=== PATIENT | male | born 1955 | race Caucasian/White ===

== ENCOUNTER 2021-03-30 09:48 | Emergency (ER) | payer BC, SELFPAY ==
[2021-03-30 09:49] VITALS: BP 141/92; PULSE 100; RESP 16; TEMP 36.6; O2SAT 95; BMI 29.8
[2021-03-30 10:10] LABS: Mucous, Urine 0 SEEN /hpf (<or=2+)
[2021-03-30 10:17] LABS: Color, Urine Yellow (Yellow); Glucose, Dipstick Normal (Normal); Ketone-Dipstick Negative (Negative); Leukocyte Esterase-Dipstick 25 /ul (Negative); Nitrite-Dipstick Negative (Negative); Occult Blood-Urine 250 /ul (Negative); Protein-Dipstick 30 mg/dl (Negative); Urine Bilirubin Dipstick Negative (Negative); Urine Clarity Clear (Clear); Urine Urobilinogen Normal (Normal)
[2021-03-30 10:27] LABS: Bacteria 1+ /hpf (None Seen); Red Blood Cells-Urine 25-50 SEEN /hpf (0-5); Squamous Epithelial Cells - UA 0-5 SEEN /hpf (0-5); White Blood Cells 0-5 SEEN /hpf (0-5)
--- NOTE | 2021-03-30 10:32 | EX.ED.DYSGE1 ---
HPI History of Present Illness Chief Complaint: Flank Pain Informant: patient Narrative Narrative: Patient complains of nausea and vomiting with a kidney stone. He has had kidney stones many times. He is always been able to pass them. He started with kidney stone symptoms just about 24 hours ago. He saw urologist, Dr. Godoy down in [place]. They were able to get a CAT scan yesterday that showed 2 stones on the right. The expectation was that they would pass. I do not know the exact size though. He was placed on Flomax, Phenergan, hydrocodone. He states he has been having problems with nausea vomiting. He thinks the pain meds are causing his vomiting. He is taking the Phenergan also. While he was here, he just passed a small stone. He was having trouble urinating but it now seems better. The pain used to be in his right flank. Is now moved down to his right lower quadrant. However, the pain is starting to come back and the nausea is coming back slightly after passing the stone here. [facility] Medical History Hyperlipidemia Home Medications ketorolac 10 mg PO TID 5 Days #15 tab 03/30/21 [Rx Last Taken Unknown] Allergy/AdvReac Type Severity Reaction Status Date / Time No Known Allergies Allergy Verified 03/30/21 09:52 Surgical History no surgical history Social History Smoking Status: Never smoker ROS ROS ED Constitutional Constitutional ED: Denies chills or fever(s) ENT ENT ED: Denies sore throat Cardiovascular Cardiovascular: Denies chest pain Respiratory/Chest Respiratory/Chest: Denies cough or dyspnea Gastrointestinal Gastrointestinal: Reports abdominal pain, nausea and vomiting; Denies constipation, diarrhea or melena Genitourinary Genitourinary ED: Reports hematuria Musculoskeletal Musculoskeletal: Reports back pain and other Details: Right flank pain. Now better. ; Denies myalgias Integumentary Denies rash Neurologic Neurologic: Denies headache(s) Allergic/Immunologic Allergic/Immunologic ED: Denies urticaria EXAM Physical Exam Const Vital Signs: 03/30/21 09:49 03/30/21 11:50 Temperature 97.9 F Temperature Source Temporal Pulse Rate 100 72 Respiratory Rate 16 15 Blood Pressure 141/92 H 134/63 H Blood Pressure Mean 108 86 Pulse Ox 95 96 Oxygen Delivery Method Room Air Room Air Positive well nourished and well developed General Appearance ED: well developed; Negative for cyanotic or diaphoretic HEENT Negative for trauma Chest Wall inspection of chest normal Resp normal respiratory effort and clear to auscultation bilaterally Cardio regular rate and regular rhythm GI normal to inspection, nondistended, normoactive bowel sounds and non-tender GI Narrative: Patient has pain in the right lower quadrant but he has no tenderness. No hernias felt. Palpation: soft Back/Spine Back/Spine Narrative: Very mild right CVA tenderness with deeper percussion only. No rashes. Extremity normal to inspection Neuro Sensorium / Orientation: alert Skin no rashes or lesions noted MDM MDM MDM Narrative Medical decision making narrative: Patient feels better after treatment. His pain is well controlled. He has no nausea. Urine does show red cells. No sign of infection. I will get him home with Toradol prescription. We will also write for some Zofran to give him options of nausea. He will follow up with his urologist. Return with worsening pain, nausea vomiting, fevers or other concerns. Lab Data Attestation: I reviewed the patient's lab results. Labs: Laboratory Results - last 24 hr 03/30/21 10:02 Urine Color Yellow Urine Clarity Clear Urine pH 5.0 Ur Specific [place] 1.020 Urine Protein 30 H Urine Glucose (UA) Normal Urine Ketones Negative Urine Occult Blood 250 H Urine Nitrite Negative Urine Bilirubin Negative Urine Urobilinogen Normal Ur Leukocyte Esterase 25 H Urine RBC 25-50 SEEN Urine WBC 0-5 SEEN Ur Squamous Epith Cells 0-5 SEEN Urine Bacteria 1+ Urine Mucus 0 SEEN Discharge Plan Triage Chief Complaint: Flank Pain ED Provider: Víctor Mercedes Dx/Rx/DC Orders Clinical Impression: Kidney stone, Nausea & vomiting Instructions: ED Kidney Stone w/ Colic Prescriptions: New ketorolac 10 mg tablet 10 mg PO TID 5 Days Qty: 15 RF: 0 Primary Care Provider: Kurt Hart NP Referrals: Kurt Hart NP, [facility] [Primary Care Provider] - 3-5 Days if not improving Disposition Disposition: Home, Self Care
[2021-03-30] MEDS: 0.9% Normal Saline 1,000 ML 1000 ML IV (11:04)
[2021-03-30] MEDS: Morphine 4 MG/ML Syringe IV (11:05)
[2021-03-30] MEDS: Ketorolac 15 MG/ML Vial IV (11:05)
[2021-03-30] MEDS: Ondansetron 4 MG/2 ML Vial IV (11:05)
[2021-03-30 11:50] VITALS: BP 134/63; PULSE 72; RESP 15; O2SAT 96
[2021-03-30 13:17] VITALS: BP 137/91; PULSE 91; RESP 18; O2SAT 99
== END 2021-03-30 13:24 | disposition home or self-care (01) ==
PROVIDERS: Emergency Provider Emergency Medicine; PCP Nurse Practitioner Family
DX: N20.0 Calculus of kidney (principal); E78.5 Hyperlipidemia, unspecified
CPT/HCPCS: 81001; 96361; 96374; 96375; 99284; J7030; A4216; J2405

== ENCOUNTER → 2021-11-12 | Outpatient (CLI) | payer BC, SELFPAY ==
--- NOTE | 2021-11-12 07:42 | ECHOD_ITS ---
Reason For Study: SLEEP APNEA Procedure This was a 2D Doppler, Color Flow transthoracic echocardiogram. The study was technically difficult. Exam performed in department. Left Ventricle Normal LV size. Mild concentric left ventricular hypertrophy. Apical false tendon noted. Left ventricular systolic function is normal. The estimated ejection fraction is 65 %. No evidence for diastolic dysfunction. No regional wall motion abnormalities noted. Right Ventricle Normal RV size. Normal systolic function. Atria Normal left atrium. Normal right atrium. No doppler evidence for ASD. Mitral Valve There is no mitral annular calcification. Myxomatous mitral valve. Mild to moderate mitral valve prolapse. Mild (1+) mitral valve insufficiency. Tricuspid Valve Normal tricuspid valve. Trivial tricuspid valve insufficiency. Unable to estimate RV systolic pressure due to insufficient tricuspid regurgitant envelope. Aortic Valve Trisinus/trileaflet aortic valve. Normal aortic valve. Pulmonic Valve The pulmonic valve is not well visualized. Great Vessels Normal sized aortic root. Pericardium/Pleural No pericardial effusion. MMode/2D Measurements & Calculations LVIDd: 4.6 cm IVSd: 1.3 cm Ao root diam: 2.9 cm LVIDs: 2.9 cm LVPWd: 1.3 cm FS: 37.5 % LAV(MOD-bp): 48.6 ml LVAd ap4: 29.7 cm2 SV(MOD-sp4): 50.6 ml LAV(MOD-bp) Indexed: 22.4 ml/m2 LVLd ap4: 8.6 cm LAV(MOD-sp2): 50.3 ml EDV(MOD-sp4): 83.3 ml LAV(MOD-sp4): 43.8 ml EDV(sp4-el): 87.1 ml LVAs ap4: 15.7 cm2 LVLs ap4: 6.6 cm ESV(MOD-sp4): 32.7 ml ESV(sp4-el): 31.9 ml EF(MOD-sp4): 60.8 % EF(sp4-el): 63.3 % SV(sp4-el): 55.2 ml LA A4 area: 17.1 cm2 LA dimension(2D): 4.1 cm RA A4 area: 13.1 cm2 Time Measurements MV dec time: 0.25 sec Doppler Measurements & Calculations MV E max bernardino: 86.1 cm/sec MV V2 max: 92.3 cm/sec MV dec slope: 344.2 cm/sec2 MV A max bernardino: 71.3 cm/sec MV max P.4 mmHg MV E/A: 1.2 MV V2 mean: 56.0 cm/sec MV mean P.4 mmHg MV V2 VTI: 34.9 cm Ao V2 max: 127.6 cm/sec LV V1 max: 96.9 cm/sec PA V2 max: 86.6 cm/sec Ao max P.5 mmHg LV V1 max P.8 mmHg Ao V2 mean: 83.6 cm/sec Ao mean P.3 mmHg Ao V2 VTI: 27.9 cm ECHO/Echo Complete Interpretation Summary The study was technically difficult. Left ventricular systolic function is normal. The estimated ejection fraction is 65 %. Mild concentric left ventricular hypertrophy. Apical false tendon noted. Myxomatous mitral valve. Mild to moderate mitral valve prolapse. Mild (1+) mitral valve insufficiency. Trivial tricuspid valve insufficiency. Unable to estimate RV systolic pressure due to insufficient tricuspid regurgita nt envelope. No evidence for diastolic dysfunction. Ordering Physician: Jethro Sequeira Referring Physician: Jethro Sequeira V Performed By: Che Quezada RCS
== END | disposition home or self-care (01) ==
PROVIDERS: PCP Nurse Practitioner Family; Referring Provider Internal Medicine Pulmonary Disease; Visit Provider Internal Medicine Pulmonary Disease
DX: G47.31 Primary central sleep apnea (principal); U07.1 COVID-19
CPT/HCPCS: 93306

== ENCOUNTER 2023-04-14 08:44 | Emergency (ER) | payer BC, SELFPAY ==
[2023-04-14 08:44] VITALS: BP 172/91; PULSE 70; RESP 16; TEMP 36.2; O2SAT 97; BMI 30.7
--- NOTE | 2023-04-14 09:03 | RAD_ITS ---
STUDY: X-RAY - LUMBAR SPINE REASON FOR EXAM: Male, 67 years old. Pain TECHNIQUE: 3 view(s) of the lumbar spine were obtained. COMPARISON: None FINDINGS: Normal lumbar lordosis. There is no substantial scoliosis. There is a normal alignment of the vertebrae. There is multilevel endplate spondylosis of the lumbar vertebrae. There is multi-level degenerative disc disease with multi-level disc space narrowing. Facet joint arthritis in the lower lumbar spine. The soft tissue structures are unremarkable. RAD/Lumbar Spine 2 or 3 Views IMPRESSION: Degenerative changes of the spine, as detailed above. Electronically Signed: Bulmaro Nino MD at 9:56 EST ,
--- NOTE | 2023-04-14 09:04 | ED.VIS.LOWEX ---
HPI History of Present Illness Chief Complaint: Lower Extremity Injury Informant: patient Onset/Context/Timing Onset: Weeks Narrative Narrative: Patient presents secondary to left hip and leg pain. He states around [place] he started noticing pain wrapping around his left hip into the groin line. He assumed it was because he was sitting more than normal. Recently pain started going down into his thigh where he had more difficulty ambulating. He went to see the chiropractor on Monday who worked in his lower back but he states he is not really improved. Has been taking ibuprofen at home. No specific back injury. In the past he states when he does yard work or lifting he will have back pain for couple days. He has never required surgery or injections. [facility] Medical History Hyperlipidemia Home Medications ketorolac 10 mg tablet 10 mg PO TID 5 days #15 tabs 03/30/21 [Rx Last Taken Unknown] ondansetron 4 mg disintegrating tablet 4 mg PO Q8H PRN nausea and vomiting #10 tabs 03/30/21 [Rx Last Taken Unknown] cyclobenzaprine 10 mg tablet 10 mg PO TID PRN Muscle Spasm #20 TABLETS 04/14/23 [Rx Last Taken Unknown] hydrocodone-acetaminophen 5-325mg 5mg-325mg 1 tab PO Q6H PRN PRN Pain 3 days #10 TABLETS 04/14/23 [Rx Last Taken Unknown] naproxen 500 mg tablet (Naprosyn) 500 mg PO BID PRN pain #20 tabs 04/14/23 [Rx Last Taken Unknown] prednisone 20 mg tablet 40 mg (2 x 20 mg) PO DAILY #10 tabs 04/14/23 [Rx Last Taken Unknown] Allergy/AdvReac Type Severity Reaction Status Date / Time No Known Allergies Allergy Verified 04/14/23 08:46 Social History Smoking Status: Never smoker ROS ROS ED Constitutional Constitutional ED: Denies chills or fever(s) Eyes Eyes: Denies change in vision or discharge from eye(s) ENT ENT ED: Denies discharge from eye(s), rhinorrhea or sore throat Cardiovascular Cardiovascular: Denies chest pain Respiratory/Chest Respiratory/Chest: Denies cough or dyspnea Gastrointestinal Gastrointestinal: Denies abdominal pain, nausea or vomiting Genitourinary Genitourinary ED: Denies difficulty urinating or dysuria Musculoskeletal Musculoskeletal: Reports extremity pain; Denies back pain Integumentary Denies Abrasions or rash Neurologic Neurologic: Denies headache(s) or weakness Psychiatric Psychiatric: Denies anxiety or depression Allergic/Immunologic Allergic/Immunologic ED: Denies lip swelling or urticaria EXAM Physical Exam Const Vital Signs: 04/14/23 08:44 Temperature 97.2 F L Temperature Source Temporal Pulse Rate 70 Respiratory Rate 16 Blood Pressure 172/91 H Blood Pressure Mean 118 Pulse Ox 97 Oxygen Delivery Method Room Air Positive well nourished and well developed General Appearance ED: well developed HEENT Reports moist mucous membranes Neck full ROM Chest Wall inspection of chest normal and palpation of chest normal Resp normal respiratory effort and clear to auscultation bilaterally Cardio regular rate and regular rhythm GI non-tender Back/Spine Back/Spine Narrative: No focal lumbar tenderness. Extremity Extremity Narrative: Good range of motion at the hip with no reproducible tenderness. Good distal pulses. Neuro oriented x3, moves all extremities and no sensory deficits noted Motor Exam: strength 5/5 throughout Psych mental status grossly normal Skin no wounds MDM MDM MDM Narrative Medical decision making narrative: Patient sent for imaging of lumbar spine along with pelvis and left hip to ensure no acute bony abnormality. Patient given [place] and Flexeril to help with pain and spasm. Radiography Diagnostic Testing: Clinical Impression(s) from Imaging Studies Lumbar Spine X-Ray 04/14/23 09:03 IMPRESSION: Degenerative changes of the spine, as detailed above. Electronically Signed: Bulmaro Nino MD at 9:56 EST , Hip/Pelvis X-Ray 04/14/23 09:32 IMPRESSION: No acute abnormality is seen. Electronically Signed: Bulmaro Nino MD at 9:55 EST , Treatment and Re-Evaluation Narrative: Lumbar spine x-rays per my interpretation reveal no acute findings. Radiology interpretation reviewed and agrees. Pelvis and left hip x-ray per my interpretation reveals no fracture or acute bony abnormality. Radiology interpretation reviewed and agrees. Test results discussed with patient and . I do feel his symptoms are consistent with sciatica. He will be started on Naprosyn, [place], Flexeril, and prednisone. He is to follow-up with his PCP. Return instructions given. Discharge Plan Triage Chief Complaint: Lower Extremity Injury ED Provider: Paola Ratliff Dx/Rx/DC Orders Clinical Impression: Sciatica Instructions: ED Sciatica Prescriptions: New naproxen [Naprosyn] 500 mg tablet 500 mg PO BID PRN (Reason: pain) Qty: 20 0RF cyclobenzaprine 10 mg tablet 10 mg PO TID PRN (Reason: Muscle Spasm) Qty: 20 0RF prednisone 20 mg tablet 40 mg PO DAILY Qty: 10 0RF hydrocodone-acetaminophen 5-325 mg tablet 1 tab PO Q6H PRN PRN (Reason: Pain) 3 Days Qty: 10 0RF No Action ketorolac 10 mg tablet 10 mg PO TID 5 Days Qty: 15 0RF ondansetron 4 mg tablet,disintegrating 4 mg PO Q8H PRN (Reason: nausea and vomiting) Qty: 10 0RF Primary Care Provider: Kurt Hart NP Referrals: Kurt Hart [facility] [Primary Care Provider] - 1 Week Disposition Disposition: Home, Self Care
[2023-04-14] MEDS: cycloBENZAPRine HCl 10 MG Tablet PO (09:16)
[2023-04-14] MEDS: HYDROcodone Bitartrate/Apap 5/325 Tablet PO (09:16)
--- NOTE | 2023-04-14 09:32 | RAD_ITS ---
STUDY: X-RAY - PELVIS AND LEFT HIP REASON FOR EXAM: Male, 67 years old. Left hip pain radiating down the left lower extremity. No known injury. TECHNIQUE: 3 views of the pelvis and hip. COMPARISON: None. FINDINGS: There is a non-specific bowel gas pattern. A calcified phlebolith is seen in the left hemipelvis. Metallic clips suggestive of a vasectomy. Normal bilateral iliac wings, sacroiliac joints and visualized sacrum. Normal bilateral superior and inferior pubic rami. Normal pubic symphysis. Normal bilateral ischial tuberosities. Normal visualized femoral head. Normal acetabulum. Normal hip joint. RAD/HIP, UNI W/ Pelvis 2-3 Views IMPRESSION: No acute abnormality is seen. Electronically Signed: Bulmaro Nino MD at 9:55 EST ,
--- OUTSIDE RECORDS SUMMARY | 2023-04-14 09:42 | XMS RPT_ITS | CCD ---
Author Name Unknown Address [id number] [place] [address] Organization [facility] Care Team Providers Care Business Support Assistant Name Role Phone RAFI MCKEON APRN, CNP Primary Care Phys ician RAFI LAI Attending Unavailable RAFI LAI Primary Care Unavailable RAFI LAI Attending Unavailable RAFI LAI Primary Care Unavailable Medications Current Medications Medication Drug Class(es) Dates Sig (Normalized) Sig (Original) acetaminophen 325 mg / HYDROcodone bitartrate 5 mg oral tablet (2 sources) Opioid Agonist Start: 03-29-2021 End: 04-03-2021 take 1 tablet by mouth every six hours as needed for pain [place] 325- 5 mg oral tablet Dose = 1 tab(s), Oral, q6h, PRN for pain, Fill Date: 03/29/2021, X 5 day(s), # 20 tab(s), 0 Refill(s), Pharmacy: [id number], Acute right flank pain Low back pain, 176, cm, 03/29/21 15:23:00 EST, Height, 91.7, kg, 03/29/21 15:23:00 EST, Do... Start Date: 03/29/21 Stop Date: 04/03/21 Status: Ordered Ascorbic Acid (1 source) Vitamin C Start: 05-06-2022 Vitamin C qDay, 0 Refill(s) Start Date: 05/06/22 Status: Ordered ramipril 5 mg oral capsule (2 sources) Angiotensin Converting Enzyme Inhibitor Start: 10-29-2021 End: 05-27-2022 ramipril 5 mg oral capsule Dose : 5 mg = 1 cap(s), Oral, Daily, # 90 cap(s), 1 Refill(s), Pharmacy: [id number], HTN, goal below 140/90, 176, cm, 05/06/22 13:25:00 EST, Height, kg, 05/06/22 13:25:00 EST, Dosing Weight Start Date: 05/06/22 Status: Ordered rosuvastatin calcium 5 mg oral tablet (6 sources) HMG-CoA Reductase Inhibitor Start: 05-06-2022 End: 11-02-2022 rosuvastatin 5 mg oral tablet Dose : 5 mg = 1 tab(s), Oral, qDay, # 90 tab(s), 1 Refill(s), Pharmacy: [facility], Hyperlipidemia LDL goal Start Date: 05/06/22 Stop Date: 11/02/22 Status: Ordered Completed/Discontinued Medications Medication Drug Class(es) Dates Sig (Normalized) Sig (Original) promethazine hydrochloride 25 mg oral tablet (4 sources) Phenothiazine Start: 03-29-2021 End: 04-12-2021 promethazine 25 mg oral tablet Dose : 25 mg = 1 tab(s), Oral, q6h, # 28 tab(s), 1 Refill(s), Pharmacy: [facility], Nausea in adult History of kidney stones, 176, cm, 03/29/21 15:23:00 EST, Height, kg, 03/29/21 15:23:00 EST, Dosing Weight Start Date: 03/29/21 Stop Date: 04/12/21 Status: Ordered tamsulosin hydrochloride 0.4 mg oral capsule (4 sources) alpha-Adrenergic Kacey Start: 03-29-2021 End: 04-28-2021 Flomax 0.4 mg oral capsule Dose : 0.4 mg = 1 cap(s), Oral, qDay, # 30 cap(s), 0 Refill(s), Pharmacy: [facility], Acute right flank pain Low back pain, 176, cm, 03/29/21 15:23:00 EST, Height, kg, 03/29/21 15:23:00 EST, Dosing Weight Start Date: 03/29/21 Stop Date: 04/28/21 Status: Ordered Problems Problem Classification Problem Date Documented Da te Episodic/Chronic Calculus of urinary tract (6 sources) History of calculus of kidney 01-08-2019 Episodic Chronic kidney disease (2 sources) Chronic kidney disease stage 3 10-29-2021 Chronic Disorders of lipid metabolism (6 sources) Hyperlipidemia 01-10-2019 Chronic Essential hypertension (2 sources) Hypertensive disorder 10-29-2021 Chronic Other circulatory disease (1 source) Elevated blood-pressure reading without diagnosis of hypertension 10-29-2021 Episodic Other nutritional; endocrine; and metabolic disorders (1 source) Body mass index 30+ - obesity 05-06-2022 Chronic Other nutritional; endocrine; and metabolic disorders (4 sources) Overweight 01-08-2019 Episodic Phlebitis; thrombophlebitis and thromboembolism (4 sources) Phlebitis and thrombophlebitis 01-08-2019 Episodic Residual codes; unclassified (2 sources) Obstructive sleep apnea syndrome 10-29-2021 Chronic Residual codes; unclassified (2 sources) Sleep apnea 10-29-2021 Chronic Results Test Name Value Interpretation Reference Range Facil ity Encounters Encounter Date Encounter Type Care Provider Facility Start: 10-28-2022 [facility] Start: 10-28-2022 End: 10-28-2022 Patient encounter procedure RAFI LAI DINING ROOM TABLES SET UP ATTENDANT - INDUSTRIAL TECHNICIAN [facility] Start: 04-09-2022 End: 04-10-2022 ambulatory RAFI LAI Facility:B Start: 04-09-2022 End: 04-09-2022 Patient encounter procedure RAFI LAI DINING ROOM TABLES SET UP ATTENDANT - INDUSTRIAL TECHNICIAN [facility] Start: 09-25-2021 End: 09-25-2021 Patient encounter procedure RAFI LAI DINING ROOM TABLES SET UP ATTENDANT - INDUSTRIAL TECHNICIAN [facility] Start: 03-31-2021 End: 04-04-2021 Outreach Lab RAFI LAI DINING ROOM TABLES SET UP ATTENDANT - INDUSTRIAL TECHNICIAN [facility] Start: 03-29-2021 End: 04-02-2021 Outreach Lab RAFI Forrester MING DINING ROOM TABLES SET UP ATTENDANT - INDUSTRIAL TECHNICIAN [facility] Start: 03-29-2021 End: 03-29-2021 Patient encounter procedure RAFI LAI DINING ROOM TABLES SET UP ATTENDANT - INDUSTRIAL TECHNICIAN [facility] Procedures Date Procedure Procedure Detail Performing Clinician None (qualifier value) ANTHONY LAI DINING ROOM TABLES SET UP ATTENDANT - INDUSTRIAL TECHNICIAN Immunizations Immunization Date Immunization Notes Care Provider Fa cility 09-20-2018 tetanus toxoid, redu adelaida diphtheria toxoid, and acellular pertussis vaccine, adsorbed RAFI LAI DINING ROOM TABLES SET UP ATTENDANT - INDUSTRIAL TECHNICIAN [facility] 04-03-2018 tetanus toxoid, redu adelaida diphtheria toxoid, and acellular pertussis vaccine, adsorbed RAFI LAI DINING ROOM TABLES SET UP ATTENDANT - INDUSTRIAL TECHNICIAN [facility] 03-02-2018 tetanus toxoid, redu adelaida diphtheria toxoid, and acellular pertussis vaccine, adsorbed RAFI LAI DINING ROOM TABLES SET UP ATTENDANT - INDUSTRIAL TECHNICIAN [facility] [place] Payers Date Payer Category Payer Unknown [id number] 1955 Unknown [id number] 1955 Unknown [id number] Social History Date Type Detail Facility Start: 01-08-2019 Never smoked t obacco (finding) [facility] Sex Assigned At Male [facility] Evaluation + Plan note Laboratory Note Date & Type Note Facility Evaluation + Plan note Future Scheduled TestsLipid Profile 2/5/22Complete Metabolic Panel 05/08/21 [facility] Evaluation + Plan note Laboratory Note Date & Type Note Facility Evaluation + Plan note Future Appointments Appointment Date:04/29/2022 01:40:00 PM Scheduled Provider:RAFI LAI APRN, CNP Location:[facility] Appointment Type:PC OV Follow Up Diagnostic Tests PendingRenin, Plasma 04/09/22 Future Scheduled TestsMicroalbumin Level Urine 05/01/22 [facility] Evaluation + Plan note Laboratory Note Date & Type Note Facility Evaluation + Plan note Future Appointments Appointment Date:11/04/2022 02:00:00 PM Scheduled Provider:RAFI LAI APRN, CNP Location:[facility] Appointment Type:PC OV Follow Up Future Scheduled TestsMicroalbumin Level Urine 05/01/22 [facility] Hospital course Narrative Note Date & Type Note Facility Hospital course Narrative No data available for this section [facility] Hospital Discharge instructions Note Date & Type Note Facility Hospital Discharge instructions No data available for this section [facility] Progress note Note Date & Type Note Facility Progress note No data available for this section [facility] Summary Purpose Family History No Family History Records Found No data available for this section Advance Directives No Advanced Directives Records Found Additional Source Comments Care Team (unrecognized sect ion and content) Personnel Name: RAFI LAI APRN, CNP Address: Address: [address] [place] [address] Care Team Personnel Name: RAFI LAI APRN, CNP Position: P4 Advanced Practice Nurse Member Role: Primary Care Physician Address: Address: [address] [place] [address] Care Team Related Persons Name: LORRIE SCHWARZ (unrecognized sect ion and content) No Status Records Found INFORMATION SOURCE (unrecogn ized section and content) Patient Care team informatio n (unrecognized section and content) Care Team Personnel Name: MING RAFI Usama CHASE - INDUSTRIAL TECHNICIAN Position: P4 Advanced Allergist Immunologist Member Role: Primary Care Physician Address: Address: [address] [facility] [place], [place] [address] Care Team Related Persons Name: LORRIE SCHWARZ FOR RECORDS PERTAINING TO PATIENTS WHO ARE OR HAVE BEEN ENROLLED IN A CHEMICAL DEPENDENCY/SUBSTANCEABUSE PROGRAM, SOME INFORMATION MAY BE OMITTED. This clinical summary was aggregated from multiple sources. Caution should be exercised in using it in the provision of clinical care. This summary normalizes information from multiple sources, and as a consequence, information in this document may materially change the coding, format and clinical context of patient data. In addition, data may be omitted in some cases. CLINICAL DECISIONS SHOULD BE BASED ON THE PRIMARY CLINICAL RECORDS. [facility]. provides no warranty or guarantee of the accuracy or completeness of information in this document.
[2023-04-14 10:25] VITALS: BP 129/88; PULSE 72; RESP 15; O2SAT 98
== END 2023-04-14 10:25 | disposition home or self-care (01) ==
PROVIDERS: Emergency Provider Emergency Medicine; PCP Nurse Practitioner Family; Visit Provider Emergency Medicine
DX: M54.30 Sciatica, unspecified side (principal); M25.552 Pain in left hip; E78.5 Hyperlipidemia, unspecified
CPT/HCPCS: 72100; 73502; 99283

== ENCOUNTER 2023-05-01 12:33 | Emergency (ER) | payer BC, SELFPAY ==
[2023-05-01 12:33] VITALS: BP 166/84
[2023-05-01 12:34] VITALS: PULSE 89; RESP 16; TEMP 36.4; O2SAT 99; BMI 33.6
--- NOTE | 2023-05-01 12:54 | MRI_ITS ---
STUDY: MRI LUMBAR SPINE WITHOUT CONTRAST REASON FOR EXAM: Male, 67 years old. lumbar radiculopathy left -- unable to walk TECHNIQUE: Standardized fat and water weighted pulse sequences were obtained in the sagittal and axial planes. COMPARISON: X-ray the lumbar spine dated April 14, 2023 FINDINGS: Normal lumbar lordosis. There is no substantial scoliosis. Normal conus medullaris that terminates at the L1 level. No marrow edema or fracture or compression deformity is present. No aggressive lesions are seen. There is no evidence of vertebral osteomyelitis or discitis. T12-L1: Normal endplates. Normal disc height, hydration and morphology. Normal bilateral facet joints. Normal central canal and bilateral lateral recesses. Normal bilateral intervertebral neural foramina. L1-2: Diffuse disc desiccation with mild to moderate disc space narrowing. Minor anterior disc spur complex. Small posterior Schmorl''s node. Normal bilateral facet joints. Normal central canal and bilateral lateral recesses. Normal bilateral intervertebral neural foramina. L2-3: Moderate disc space narrowing with a diffuse disc spur complex. Moderate to large size Schmorl''s node. Slight retrolisthesis of L2 on L3 of less than 2 mm. Superimposed shallow midline to left paracentral disc protrusion causing left lateral recess stenosis with nerve root compression and contributing to mild central canal stenosis. Mild facet joint hypertrophy. Mild bilateral foraminal stenosis. L3-4: Mild anterior endplate spurring. Diffuse disc desiccation. Mild posterior disc space narrowing without bulging or herniation of the disc. Normal bilateral facet joints. Normal central canal and bilateral lateral recesses. Normal bilateral intervertebral neural foramina. L4-5: Normal endplates. Diffuse disc desiccation with minimal posterior disc space narrowing and slight annular bulging. Bilateral lateral recess stenosis without nerve root compression. Normal central canal. Mild facet joint hypertrophy. Small to moderate focus of extruded disc material into the left neural foramen measures 1 cm in diameter and causes severe left foraminal stenosis with nerve root compression. Normal right neural foramen. L5-S1: Diffuse disc desiccation with mild to moderate disc space narrowing and minor annular bulging. Mild endplate spurring. Mild facet joint hypertrophy. Normal central canal and bilateral lateral recesses. Normal bilateral intervertebral neural foramina. Normal visualized sacral ala. Normal visualized paraspinous soft tissue structures. Multiple small to moderate-sized cyst are seen in the kidneys. MRI/Spine Lumbar (Routine) IMPRESSION: 1. Multilevel degenerative changes, as described above. 2. Left paracentral disc protrusion at L2-L3 causing left lateral recess stenosis with nerve root compression. 3. Mild central canal stenosis at L2-L3 4. L4-L5 small to moderate focus of extruded disc material into the left neural foramen measures 1 cm in diameter and causes severe left foraminal stenosis with nerve root compression. Electronically Signed: Ramy Rice MD at 15:31 EST ,
--- NOTE | 2023-05-01 12:56 | EX.ED.DYSGE1 ---
HPI History of Present Illness Chief Complaint: Lower Extremity Injury Informant: patient and spouse/S.O. Narrative Narrative: Presents worsening pain back pain into his left hip for 4 weeks. He was seen in the ED 17 days ago for image studies. He was placed on naproxen and Frank[place] and steroids for 5 days. Symptoms briefly improved however returned. A follow-up with her PCP 10 days ago continued naproxen and Frank[place]. He has been seeing a chiropractor. He still having discomfort. He states today was getting up when he felt sudden pain that got worse in his hip and back. He is unable to get up EMS was contacted and brought here. Denies any direct falls or injuries. He has had intermittent back issues over the years that did not cause much problems. No MRIs in the past. He has no allergies. Took his naproxen this morning along with Frankfort no improvement. Prior similar symptoms: Yes [facility] Medical History Hyperlipidemia Home Medications ketorolac 10 mg tablet 10 mg PO TID 5 days #15 tabs 03/30/21 [Rx Last Taken Unknown] ondansetron 4 mg disintegrating tablet 4 mg PO Q8H PRN nausea and vomiting #10 tabs 03/30/21 [Rx Last Taken Unknown] cyclobenzaprine 10 mg tablet 10 mg PO TID PRN Muscle Spasm #20 TABLETS 04/14/23 [Rx Last Taken Unknown] hydrocodone-acetaminophen 5-325mg 5mg-325mg 1 tab PO Q6H PRN PRN Pain 3 days #10 TABLETS 04/14/23 [Rx Last Taken Unknown] naproxen 500 mg tablet (Naprosyn) 500 mg PO BID PRN pain #20 tabs 04/14/23 [Rx Last Taken Unknown] prednisone 20 mg tablet 40 mg (2 x 20 mg) PO DAILY #10 tabs 04/14/23 [Rx Last Taken Unknown] prednisone 20 mg tablet 60 mg (3 x 20 mg) PO DAILY #12 TABLETS 05/01/23 [Rx Last Taken Unknown] Allergy/AdvReac Type Severity Reaction Status Date / Time No Known Allergies Allergy Verified 04/14/23 08:46 Social History Smoking Status: Never smoker ROS ROS ED Constitutional Constitutional ED: Denies chills, fever(s) or sweats Eyes Eyes: Denies change in vision ENT ENT ED: Denies dysphagia or sore throat Cardiovascular Cardiovascular: Denies chest pain, leg edema, palpitations or racing heartbeat Respiratory/Chest Respiratory/Chest: Denies cough, dyspnea or dyspnea on exertion Gastrointestinal Gastrointestinal: Denies abdominal pain, diarrhea, nausea or vomiting Genitourinary Genitourinary ED: Denies dysuria, hematuria or urinary frequency Musculoskeletal Musculoskeletal: Reports back pain and other Details: Pain into left hip patient ; Denies extremity pain or neck pain Integumentary Denies rash or wounds Neurologic Neurologic: Denies headache(s), paresthesias or weakness EXAM Physical Exam Const Vital Signs: 05/01/23 12:34 05/01/23 12:33 05/01/23 15:52 Temperature 97.6 F L Temperature Source Temporal Pulse Rate 89 98 Respiratory Rate 16 16 Blood Pressure 166/84 H Blood Pressure Mean 111 Pulse Ox 99 99 Oxygen Delivery Method Room Air Positive well nourished and well developed Constitutional Narrative: Uncomfortable, laying in bed hip in a flexed position resting on bucket. General Appearance ED: well developed HEENT Reports moist mucous membranes normocephalic and atraumatic Eyes PERRL, EOMs intact bilaterally and conjunctivae normal General Eye ED: Yes normal appearance of both eyes Neck no lymphadenopathy and supple General: Negative for tenderness Chest Wall Chest: Negative for tenderness Resp normal respiratory effort and normal air movement Effort and Inspection: symmetric chest movement; Negative for respiratory distress Cardio regular rate, regular rhythm and no murmurs Peripheral Pulses: pulses 2+ throughout GI normal to inspection, nondistended, normoactive bowel sounds and non-tender Palpation: Negative for guarding or rebound tenderness present Back/Spine no CVA tenderness Back/Spine Narrative: No midline tenderness there is some paralumbar tenderness on the left. Extremity normal to inspection Extremity Narrative: Left lower extremity: Hip with stress internal/external rotation with no pain or impingement. Upon extension down to the bed increasing tightness in the medial thigh groin region. General Extremety ED: Negative for edema or tenderness General Extremity: Negative for edema Neuro oriented x3 and no sensory deficits noted Sensorium / Orientation: awake and alert Skin no rashes or lesions noted and no wounds MDM MDM MDM Narrative Medical decision making narrative: Interventions / MDM: Differential diagnosis: Diagnosis considered but do not suspect: N/A My EKG interpretation: N/A Imaging independently reviewed and interpreted by myself: N/A External documents reviewed: ED visit on the with image studies left hip and lumbar spine, degenerative changes of the lumbar spine. Left hip x-ray negative. Test considered but not ordered:N/A ED course: Patient worsening pain after getting up today unable to ambulate. He had x-rays that were -17 days ago. He is failing outpatient treatment. She is unable to ambulate. Clinical exam does not appear to be in the hip region concerns for lumbar L3 region. with radicular he is unable to ambulate and failed outpatient therapy, therefore I will obtain an MRI to help with further evaluation of his symptoms. IV to be established will be treated with morphine and Solu-Medrol. 1350: Labs are stable MRI pending next 10 minutes, patient will be given IV Ativan help with muscle loss control relaxation for the MR study. 1550: MRI results notes L2-L3 and L4-L5 disc herniation with extrusion L4-L5. His symptoms are left-sided with these results. He was able to get up and walk mild favoring the left side. However not more comfortable can stand up. Discussed avoiding significant bending. He is provided a walker. I did discuss with pain management office of Dr. Carver, patient given number to call today to have an appoint with office tomorrow and be seen by Dr. Powell. This was given his spouse was make an appointment through the emergency department. Will continue steroids. Has naproxen and Frankfort at home. Re-evaluation: stable Disposition discussed with patient/family/significant other: Patient and significant other Case discussed with consulting clinician: Pain management office This note was generated with [employer] dictation software. It may contain incorrect words, spelling, and punctuation that were not noted in checking the note before signing. Lab Data Attestation: I reviewed the patient's lab results. Labs: Laboratory Results - last 24 hr 05/01/23 13:05 WBC 10.5 RBC 4.88 Hgb 14.8 Hct 43.5 MCV 89.1 MCH 30.3 MCHC 34.0 RDW Std Deviation 39.0 RDW Coeff of Sang 11.9 Plt Count 217 MPV 9.7 Immature Gran % (Auto) 0.400 Neut % (Auto) 82.4 H Lymph % (Auto) 10.4 L Crowley % (Auto) 5.3 Eos % (Auto) 1.1 Baso % (Auto) 0.4 Absolute Neuts (auto) 8.6 H Absolute Lymphs (auto) 1.09 Nucleated RBC % 0 PT 12.7 INR 1.0 APTT 26.0 Sodium 138 Potassium 3.7 Chloride 107 Carbon Dioxide 24.0 Anion Gap 7 BUN 15 Creatinine 1.11 Estim Creat Clear Calc 83.43 Est GFR (MDRD) Af Amer 85 Est GFR (MDRD) Non-Af 71 BUN/Creatinine Ratio 13.5 Glucose 115 H Calcium 9.6 Radiography Diagnostic Testing: Clinical Impression(s) from Imaging Studies Lumbar Spine MRI 05/01/23 12:54 IMPRESSION: 1. Multilevel degenerative changes, as described above. 2. Left paracentral disc protrusion at L2-L3 causing left lateral recess stenosis with nerve root compression. 3. Mild central canal stenosis at L2-L3 4. L4-L5 small to moderate focus of extruded disc material into the left neural foramen measures 1 cm in diameter and causes severe left foraminal stenosis with nerve root compression. Electronically Signed: Ramy Rice MD at 15:31 EST Reading Location ID and State: [facility] / [place] , Service support , Discharge Plan Triage Chief Complaint: Lower Extremity Injury ED Provider: Flo Garrison Dx/Rx/DC Orders Clinical Impression: Lumbar disc herniation with radiculopathy, Back pain Instructions: Understanding Lumbar Radiculopathy, ED Herniated Intervertebral Disk Prescriptions: New prednisone 20 mg tablet 60 mg PO DAILY Qty: 12 0RF No Action ketorolac 10 mg tablet 10 mg PO TID 5 Days Qty: 15 0RF ondansetron 4 mg tablet,disintegrating 4 mg PO Q8H PRN (Reason: nausea and vomiting) Qty: 10 0RF naproxen [Naprosyn] 500 mg tablet 500 mg PO BID PRN (Reason: pain) Qty: 20 0RF cyclobenzaprine 10 mg tablet 10 mg PO TID PRN (Reason: Muscle Spasm) Qty: 20 0RF prednisone 20 mg tablet 40 mg PO DAILY Qty: 10 0RF hydrocodone-acetaminophen 5-325 mg tablet 1 tab PO Q6H PRN PRN (Reason: Pain) 3 Days Qty: 10 0RF Primary Care Provider: Kurt Hart NP Referrals: Reji Powell MD [Med Staff - Active Staff] - 1 Day Kurt Hart LINE ERECTOR, LINE ERECTOR-C [Primary Care Provider] - Activity Restrictions/Additional Instructions: MRI performed today lumbar spine notes L2-L3 along with an L4-L5 disc herniation causing nerve root impingement. Discussed with pain management staff who discussed with Dr. Carver, call to be seen tomorrow in the office for further intervention. Use the walker for stability. Take your home medications as prescribed, steroids sent to the pharmacy. Disposition Disposition: Home, Self Care
[2023-05-01 13:17] LABS: Absolute Lymphocyte Count 1.09 X10^3/uL (0.83-4.51); Absolute Neutrophil Count 8.6 X10^3/uL (2.0-7.7); Basophil# 0.04 X10^3/uL; Basophil% 0.4 % (0-1); Eosinophil# 0.12 X10^3/uL; Eosinophils% 1.1 % (0-5); Hematocrit 43.5 % (40-54); Hemoglobin 14.8 g/dL (13.0-16.5); Lymphocyte # 1.09 X10^3/ul (0.83-4.51); Lymphocyte % 10.4 % (19-41); Mean Corpuscular Hgb 30.3 pg (27.0-32.0); Mean Corpuscular Volume 89.1 fL (80-94); Mean Platelet Vol. 9.7 fl (6.2-12.0); Monocyte# 0.55 X10^3/uL; Monocyte% 5.3 % (0-10); NRBC Flagged by Analyzer 0 % (0-5); Neutrophil # 8.62 X10^3/uL (2.7-7.7); Neutrophil % 82.4 % (47-70); Platelet Count 217 K/mm3 (150-450); RBC Distribution Width CV 11.9 % (11.6-14.6); Red Blood Count 4.88 M/mm3 (4.6-6.2); White Blood Count 10.5 K/mm3 (4.4-11.0)
[2023-05-01] MEDS: MethylPREDNISolone 125 MG/2 ML Vial IV (13:23)
[2023-05-01] MEDS: Morphine 4 MG/ML Syringe IV (13:23)
[2023-05-01 13:25] LABS: Prothrombin Time (Protime)PT. 12.7 SECONDS (11.7-14.9)
--- OUTSIDE RECORDS SUMMARY | 2023-05-01 13:29 | XMS RPT_ITS | CCD ---
Author Name Unknown Address [address] [place] [address] Organization [facility] Care Team Providers Care Maintenance Analyst Name Role Phone RAFI MCKEON APRN, CNP [...] every six hours as needed for pain Jeanerette 325- 5 mg oral tablet Dose = 1 tab(s), Oral, q6h, PRN for pain, Fill Date: 03/29/2021, X 5 day(s), # 20 tab(s), 0 Refill(s), Pharmacy: [id number], Acute right flank pain Low [...] Daily, # 90 cap(s), 1 Refill(s), Pharmacy: [id number], HTN, goal below 140/90, 176, cm, 05/06/22 13:25:00 EST, Height, kg, 05/06/22 13:25:00 EST, Dosing Weight Start Date: 05/06/22 Status: Ordered rosuvastatin calcium 5 mg oral tablet (6 sources) HMG-CoA Reductase Inhibitor Start: 05-06-2022 End: 11-02-2022 rosuvastatin 5 mg oral tablet Dose : 5 mg = 1 tab(s), Oral, qDay, # 90 tab(s), 1 Refill(s), Pharmacy: [facility], Hyperlipidemia LDL goal Start Date: 05/06/22 Stop Date: 11/02/22 Status: Ordered Completed/Discontinued Medications Medication Drug Class(es) Dates Sig (Normalized) Sig (Original) promethazine hydrochloride 25 mg oral tablet (4 sources) Phenothiazine Start: 03-29-2021 End: 04-12-2021 promethazine 25 mg oral tablet Dose : 25 mg = 1 tab(s), Oral, q6h, # 28 tab(s), 1 Refill(s), Pharmacy: [id number], Nausea in adult History of kidney stones, 176, cm, 03/29/21 15:23:00 EST, Height, kg, 03/29/21 15:23:00 EST, Dosing Weight Start Date: 03/29/21 Stop Date: 04/12/21 Status: Ordered tamsulosin hydrochloride 0.4 mg oral capsule (4 sources) alpha-Adrenergic Kacey Start: 03-29-2021 End: 04-28-2021 Flomax 0.4 mg oral capsule Dose : 0.4 mg = 1 cap(s), Oral, qDay, # 30 cap(s), 0 Refill(s), Pharmacy: [id number], Acute right flank pain Low [...] Provider Facility Start: 10-28-[address] [facility] Start: 10-28-2022 End: 10-28-2022 Patient encounter procedure RAFI LAI INFORMATICA DEVELOPER - PUFF IRON OPERATOR [facility] Start: 04-09-2022 End: 04-10-2022 ambulatory RAFI LAI Facility:[facility] Start: 04-09-2022 End: 04-09-2022 Patient encounter procedure RAFI LAI INFORMATICA DEVELOPER - PUFF IRON OPERATOR [facility] Start: 09-25-2021 End: 09-25-2021 Patient encounter procedure RAFI LAI INFORMATICA DEVELOPER - PUFF IRON OPERATOR [facility] Start: 03-31-2021 End: 04-04-2021 Outreach Lab RAFI LAI INFORMATICA DEVELOPER - PUFF IRON OPERATOR [facility] Start: 03-29-2021 End: 04-02-2021 Outreach Lab RAFI Forrester MING INFORMATICA DEVELOPER - PUFF IRON OPERATOR [facility] Start: 03-29-2021 End: 03-29-2021 Patient encounter procedure RAFI LAI INFORMATICA DEVELOPER - PUFF IRON OPERATOR [facility] Procedures Date Procedure Procedure Detail Performing Clinician None (qualifier value) ANTHONY LAI INFORMATICA DEVELOPER - PUFF IRON OPERATOR Immunizations Immunization Date Immunization Notes Care Provider Fa cility 09-20-2018 tetanus toxoid, redu adelaida diphtheria toxoid, and acellular pertussis vaccine, adsorbed RAFI LAI INFORMATICA DEVELOPER - PUFF IRON OPERATOR [facility] 04-03-2018 tetanus toxoid, redu adelaida diphtheria toxoid, and acellular pertussis vaccine, adsorbed RAFI LAI INFORMATICA DEVELOPER - PUFF IRON OPERATOR [facility] 03-02-2018 tetanus toxoid, redu adelaida diphtheria toxoid, and acellular pertussis vaccine, adsorbed RAFI LAI INFORMATICA DEVELOPER - PUFF IRON OPERATOR [facility] [place] Payers Date Payer Category Payer Unknown [id number] 1955 Unknown [id number] 1955 Unknown [id number] Social History Date Type Detail Facility Start: 01-08-2019 Never smoked t obacco (finding) [facility] Sex Assigned At Male [facility] Evaluation + Plan note Laboratory Note Date & Type Note Facility Evaluation + Plan note Future Scheduled TestsLipid Profile 2/5/22Complete Metabolic Panel 05/08/21 [facility] Evaluation + Plan note Laboratory Note Date & Type Note Facility Evaluation + Plan note Future Appointments Appointment Date:04/29/2022 01:40:00 PM Scheduled Provider:RAFI LAI APRN, CNP Location:[facility] Appointment Type:PC OV Follow Up Diagnostic Tests PendingRenin, Plasma 04/09/22 Future Scheduled TestsMicroalbumin Level Urine 05/01/22 [facility] Evaluation + Plan note Laboratory Note Date & Type Note Facility Evaluation + Plan note Future Appointments Appointment Date:11/04/2022 02:00:00 PM Scheduled Provider:RAFI LAI APRN, CNP Location:[facility] Appointment Type:PC OV Follow Up Future Scheduled TestsMicroalbumin Level Urine 05/01/22 [facility] Hospital course Narrative Note Date & Type Note Facility Hospital course Narrative No data available for this section [facility] Hospital Discharge instructions Note Date & Type Note Facility Hospital Discharge instructions No data available for this section [facility] Progress note Note Date & Type Note Facility Progress note No data available for this section [facility] Summary Purpose Family History No Family History Records Found No data available for this section Advance Directives No Advanced Directives Records Found Additional Source Comments Care Team (unrecognized sect ion and content) Personnel Name: RAFI LAI APRN, CNP Address: Address: [address] [place] [address] Care Team Personnel Name: RAFI LAI APRN, CNP Position: P4 Advanced Practice Nurse Member Role: Primary Care Physician Address: Address: [address] [place] [address] Care Team Related Persons Name: LORRIE SCHWARZ (unrecognized sect ion and content) No Status Records Found INFORMATION SOURCE (unrecogn ized section and content) Patient Care team informatio n (unrecognized section and content) Care Team Personnel Name: MING RAFI Usama CHASE - PUFF IRON OPERATOR Position: P4 Advanced Coffee Blender Member Role: Primary Care Physician Address: Address: [address] [facility] [place], [place] [address] Care Team Related Persons Name: LORRIE SCHWARZ [...] BE BASED ON THE PRIMARY CLINICAL RECORDS. [facility]. provides no warranty or guarantee of the accuracy or completeness of information in this document.
[2023-05-01 13:32] LABS: Anion Gap 7 (5-15); BUN 15 mg/dL (7-18); BUN/Creat Ratio 13.5 RATIO (10-20); Calcium,Total 9.6 mg/dL (8.5-10.1); Chloride 107 mmol/L (98-107); Creatinine, Serum 1.11 mg/dL (0.70-1.30); EST Glomerular Filtration Rate 71 mL/min (>60); Est Glom Filt Rate - Afr Amer 85 mL/min (>60); Estimated Creatinine Clearance 83.43 ml/min; Glucose 115 mg/dL (74-106); Potassium 3.7 mmol/L (3.5-5.1); Sodium Level 138 mmol/L (136-145)
[2023-05-01] MEDS: LORazepam 2 MG/ML Syringe IV (13:51)
[2023-05-01 15:52] VITALS: PULSE 98; RESP 16; O2SAT 99
== END 2023-05-01 16:00 | disposition home or self-care (01) ==
PROVIDERS: Emergency Provider Emergency Medicine; PCP Nurse Practitioner Family; Visit Provider Emergency Medicine
DX: M51.16 Intervertebral disc disorders with radiculopathy, lumbar region (principal); M47.816 Spondylosis without myelopathy or radiculopathy, lumbar region; E78.5 Hyperlipidemia, unspecified
CPT/HCPCS: 72148; 80048; 85025; 85610; 85730; 96374; 96375; 99283; A4216